=== PATIENT | male | born 1950 ===

== ENCOUNTER 2019-11-14 20:53 | Emergency (ER) | payer MEDICARE ==
[2019-11-14 21:09] VITALS: BP 138/66
--- NOTE | 2019-11-14 21:11 | UC ---
Respiratory Complaint HPI - HPI Summary HPI Summary: Pt w/ dementia here w/ and they are new to the area x 2 yrs. He has had swallowing issues in the past and now is on THICKENED liquids/foods. Cough x approx 1 mo. dENIES SOB or fever or choking. Occassional chest pain with cough. - History of Current Complaint Chief Complaint: UCGeneralIllness Stated Complaint: COUGH Time Seen by Provider: 11/14/19 20:55 Hx Obtained From: Patient Pain Intensity: 0 Aggravating Factors: Nothing Alleviating Factors: Nothing Associated Signs And Symptoms: Negative: Dyspnea, Calf Swelling, Nasal Congestion - Allergies/Home Medications Allergies/Adverse Reactions: Allergies Allergy/AdvReac Type Severity Reaction Status Date / Time No Known Allergies Allergy Verified 11/14/19 20:58 Home Medications: Home Medications Atorvastatin* [Lipitor*] 80 mg PO QPM 11/14/19 [History Confirmed 11/14/19] Cholecalciferol CAP/TAB(NF) [Vitamin D3 CAP/TAB (NF)] 5,000 unit PO BEDTIME [History Confirmed 11/14/19] Clopidogrel TAB* [Plavix TAB*] 75 mg PO DAILY 11/14/19 [History Confirmed ] Docusate Sodium 100 mg PO DAILY 11/14/19 [History Confirmed 11/14/19] Isosorbide Mononitrate ER TAB* [Imdur ER TAB*] 60 mg PO DAILY 11/14/19 [History Confirmed 11/14/19] Linagliptin (NF) [Tradjenta (NF)] 5 mg PO DAILY 11/14/19 [History Confirmed ] Losartan Potassium [Cozaar] 50 mg PO DAILY 11/14/19 [History Confirmed 11/14/19] Lutein 20 mg PO DAILY 11/14/19 [History Confirmed 11/14/19] Magnesium Oxide [Magnesium] 400 mg PO DAILY 11/14/19 [History Confirmed 11/14/19 ] Memantine HCl/Donepezil HCl [Namzaric 21-10 mg] 1 cap PO BEDTIME 11/14/19 [ History Confirmed 11/14/19] Metformin HCl 1,000 mg PO BID 11/14/19 [History Confirmed 11/14/19] Metoprolol Succinate XL TAB* [Toprol XL TAB*] 100 mg PO BEDTIME 11/14/19 [ History Confirmed 11/14/19] hydroCHLOROthiazide [Hydrochlorothiazide] 12.5 mg PO DAILY 11/14/19 [History Confirmed 11/14/19] risperiDONE [Risperidone] 0.25 mg PO DAILY 11/14/19 [History Confirmed 11/14/19] PMH/Surg Hx/FS Hx/Imm Hx Previously Healthy: No - chronic illnesses Endocrine History: Diabetes Cardiovascular History: Hypertension, Atrial Fibrillation GI/ History: Other - swallowing issues. Neurological History: Dementia - Surgical History Surgical History: Yes Surgery Procedure, Year, and Place: Hernia repair. Left rotator cuff - Family History Known Family History: Positive: Non-Contributory - Social History Alcohol Use: None Substance Use Type: None Smoking Status (MU): Former Smoker When Did the Patient Quit Smoking/Using Tobacco: ~1979 Review of Systems All Other Systems Reviewed And Are Negative: Yes Constitutional: Negative: Fever, Fatigue Skin: Negative: Rash ENT: Negative: Sore Throat, Sinus Congestion Respiratory: Negative: Shortness Of Breath, Other - denies pnd, LE swelling Cardiovascular: Negative: Chest Pain Gastrointestinal: Negative: Vomiting Physical Exam Triage Information Reviewed: Yes Appearance: Well-Appearing Vital Signs: Initial Vital Signs Temp 99.8 F 11/14/19 21:04 Pulse 92 11/14/19 21:04 Resp 17 11/14/19 21:04 BP 138/66 11/14/19 21:04 Pulse Ox 98 11/14/19 21:04 Vital Signs Reviewed: Yes Eyes: Positive: Conjunctiva Clear ENT: Positive: TMs normal Neck: Positive: Supple, Nontender, No Lymphadenopathy Respiratory Exam: Normal Respiratory: Positive: No respiratory distress, No accessory muscle use, Other: - distant lung sounds throughout.. Negative: Crackles Cardiovascular Exam: Normal Musculoskeletal: Positive: No Edema Neurological: Positive: Alert, Other: - due to dementia unable to answer questions accurately and speech difficult to understand. Skin: Negative: Rashes Diagnostics - Radiology No standard instances Radiology Interpretation Completed By: ED Physician, Radiologist Summary of Radiographic Findings: After review w/ Dr. Gissel Duran lower lobe may show infiltrate with bronchial cuffing. Respiratory Course/Dx - Course Course Of Treatment: Cough x 1 mo. in a pt. w/ dementia and on thickened liquids for swallowing issues. Obtained CXR to r/o aspiration and prelim review showed possible infiltrate. good O2 and has remained afebrile but we decided to tx w/ antibx to cover. 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 OF NOTE: he had an endscopy done in the past where they 'stretched out' a tight area. - Differential Dx/Diagnosis Differential Diagnosis/HQI/PQRI: Lower Resp Infection, Other Provider Diagnosis: Chronic cough Discharge ED - Sign-Out/Discharge Documenting (check all that apply): Patient Departure All imaging exams completed and their final reports reviewed: No - Discharge Plan Condition: Good Disposition: HOME Prescriptions: Benzonatate CAP* [Tessalon 100 MG CAP*] 100 mg PO TID 5 Days #35 cap DOXYcycline CAP(*) [DOXYcycline 100MG CAP(*)] 100 mg PO BID 7 Days #13 cap Patient Education Materials: Chronic Cough (ED) Referrals: Apoorva Cid MD [Primary Care Provider] - Additional Instructions: Please try to see your public transit bus driver earlier if you can. We are giving you antibiotics to cover any chance this may be a bacterial infection. - Billing Disposition and Condition Condition: GOOD Disposition: Home
[2019-11-14] MEDS ORDERED: DOXYcycline CAP(*) 100 MG PO ONE (21:36)
--- NOTE | 2019-11-15 07:32 | UC ---
- Progress Note Progress Note: CXR -probable bibasilar atelectesis/less likely pneumonia no change in Rx Course/Dx - Diagnoses Provider Diagnoses: Chronic cough Discharge ED - Sign-Out/Discharge Documenting (check all that apply): Post-Discharge Follow Up All imaging exams completed and their final reports reviewed: Yes - Discharge Plan Condition: Good Disposition: HOME Prescriptions: Benzonatate CAP* [Tessalon 100 MG CAP*] 100 mg PO TID 5 Days #35 cap DOXYcycline CAP(*) [DOXYcycline 100MG CAP(*)] 100 mg PO BID 7 Days #13 cap Patient Education Materials: Chronic Cough (ED) Referrals: Apoorva Cid MD [Primary Care Provider] - Additional Instructions: Please try to see your magneto specialist earlier if you can. We are giving you antibiotics to cover any chance this may be a bacterial infection. - Billing Disposition and Condition Condition: GOOD Disposition: Home
== END 2019-11-14 21:46 | disposition home or self-care (01) ==
LOC: UCCORT 20:53
DX: R05 Cough (principal); F03.90 Unspecified dementia, unspecified severity, without behavioral disturbance, psychotic disturbance, mood disturbance, and anxiety; E11.9 Type 2 diabetes mellitus without complications; I10 Essential (primary) hypertension; I48.91 Unspecified atrial fibrillation; Z79.84 Long term (current) use of oral hypoglycemic drugs; Z79.899 Other long term (current) drug therapy; Z87.891 Personal history of nicotine dependence
CPT/HCPCS: 71046; 99212; A9270-GY; G0463